=== PATIENT | female | born 1975 | race Caucasian/White ===

== ENCOUNTER 2017-03-07 19:46 | Emergency (ER) | payer BC, SELFPAY ==
[~2017-03-07 19:46] MED LIST: ACET500CAP PO; BALACET 325 PO; BIRTHCONTROL PILL PO; EFFEXOR XR150 MG PO; EFFEXXR75 PO; ENDOCET1 TA3; FERRETTS325 MG PO; FLEX PO; MULTIPLE VIT PO; NEUR400 PO; SEASONIQUE OR; THERAPEUTIC PO; [UNRECOGNIZED DRUG - REMARK]
[2017-03-30] MEDS ORDERED: NEUR800 PO (13:14)
[2017-03-30] MEDS ORDERED: PAX20 PO (13:15)
[2017-03-30] MEDS ORDERED: LIPITOR20 PO (13:15)
[2017-03-30] MEDS ORDERED: IBU600 PO (13:18)
[2017-03-30] MEDS ORDERED: PROBIOTIC PO (13:18)
[2017-03-30] MEDS ORDERED: FISH-EPA1000 MG PO (13:19)
[2017-03-30] MEDS ORDERED: [UNRECOGNIZED DRUG - OTHER] PO (13:21)
== END 2017-03-07 20:04 | disposition home or self-care (01) ==
LOC: ER 19:46
DX: M54.5 Low back pain (principal); F32.9 Major depressive disorder, single episode, unspecified; F41.9 Anxiety disorder, unspecified; Z88.0 Allergy status to penicillin; Z88.5 Allergy status to narcotic agent; Z88.2 Allergy status to sulfonamides; Z79.899 Other long term (current) drug therapy
CPT/HCPCS: 96372; 99283

== ENCOUNTER 2017-04-04 08:28 | Day surgery (SDC) | payer BC, SELFPAY ==
[2017-04-02 14:56] LABS: HEMATOCRIT 37.5 % (36.0-48.0); HEMOGLOBIN 12.3 g/dL (12.0-16.0)
[2017-04-02 15:11] LABS: ALBUMIN 3.6 G/DL (3.5-5.0); BUN (BLOOD UREA NITROGEN) 10 MG/DL (6-23); CALCIUM, SERUM 9.1 MG/DL (8.5-10.4); CHLORIDE, SERUM 103 MMOL/L (96-112); CREATININE 0.64 MG/DL (0.55-1.02); GFR AFRICAN AMERICAN 127 ML/MIN (>=60); GFR NON AFRICAN AMERICAN 109 ML/MIN (>=60); GLOBULIN 3.5 G/DL (2.5-4.1); GLUCOSE, SERUM 99 MG/DL (60-99); POTASSIUM, SERUM 3.9 MMOL/L (3.5-5.3); SGOT(AST) 20 U/L (5-40); SGPT(ALT) 36 U/L (5-65); SODIUM, SERUM 141 MMOL/L (135-148); TOTAL BILIRUBIN 0.5 MG/DL (0-1.2); TOTAL PROTEIN 7.1 G/DL (6.0-8.5)
[2017-04-02 15:12] LABS: ALKALINE PHOSPHATASE 126 U/L (45-117); CO2 (CARBON DIOXIDE) 34 MMOL/L (24-34)
--- NOTE | ~2017-04-04 | OP ---
Record Of Operation [facility] [address] [place]. [address] NAME: ETIENNE NATION : 73 STATUS : [facility]#: [id number] AGE: 42 ADM/REG DATE : 04/04/17 MR#: [id number] REPORT SERV DATE: 04/05/17 DICTATED BY: MICAELA CAMARA JR. DATE: 04/04/17 REPORT STATUS : Draft TRANSCRIBED BY: TAMERA DATE: 04/04/17 DATE OF PROCEDURE: REASON FOR SURGERY: This 42-year-old patient presents with a biopsy-proven malignancy of the left breast. She has been counseled concerning options of management. She does have a borderline family history and was found to be negative for inherited genetic pattern. She is to undergo breast preservation surgery and this will certainly necessitate postoperative radiation therapy at her age. Whether she will need any adjuvant therapy, be on hormone blocking therapy will depend on final pathology, and input from the medical oncologist. PREOPERATIVE DIAGNOSIS: Carcinoma of left breast. POSTOPERATIVE DIAGNOSIS: Carcinoma of left breast. SURGEON: Micaela Camara M.D. SURGERY PERFORMED: [place] node localization followed by left breast segmentectomy and sentinel node resection. DESCRIPTION OF PROCEDURE: The patient was initially injected in the nuclear medicine facility. She was taken to the operating room and under general anesthesia, she was prepped and draped in supine position in the usual sterile fashion. A curvilinear incision was made over the previously biopsied lesion in the upper outer quadrant on the left. Vertical dissection was carried down through the fatty tissue and then a 3-dimensional excision was performed measuring 4 cm across keeping the palpable mass centermost within the specimen. It was removed and oriented for pathology. Initial sectioning shows full centimeter margin in each direction. The wound was irrigated. Hemostasis was obtained. The wound was closed with two layers of Monocryl. Attention was then turned to the left axilla. With usage of the Gamma probe, a small curvilinear incision was made and vertical dissection was carried down to singly active lymph node. It was removed and taken with counts of over 6000 and background count under 30, indicating appropriate resection of the sentinel node. An adjacent non-active node was also taken as specimen. The wound was irrigated. Hemostasis was obtained. The wound was closed with two layers of Monocryl. The patient tolerated the procedure well without complications. ESTIMATED BLOOD LOSS: 10 mL. SPONGE COUNT: Correct. Record Of Operation [facility] [address] [place]. [address] NAME: ETIENNE NATION : 73 STATUS : [facility]#: [id number] AGE: 42 ADM/REG DATE : 04/04/17 MR#: [id number] REPORT SERV DATE: 04/05/17 DICTATED BY: MICAELA CAMARA JR. DATE: 04/04/17 REPORT STATUS : Draft TRANSCRIBED BY: TAMERA DATE: 04/04/17 /TAMERA Micaela Camara Jr., M.D. / [id number] CC: Juliano Beach Jr., M.D.
[~2017-04-04 08:28] MED LIST changes: +FISH-EPA1000 MG PO; +IBU600 PO; +LIPITOR20 PO; +NEUR800 PO; +PAX20 PO; +PROBIOTIC PO; +[UNRECOGNIZED DRUG - OTHER] PO
== END 2017-04-04 17:00 | disposition home or self-care (01) ==
LOC: SDC 08:28
PROVIDERS: Surgery Surgical Oncology
PROC: 07B60ZX Excision of Left Axillary Lymphatic, Open Approach, Diagnostic (ICD-10-PCS; 2017-04-04)
PROC: 0HBU0ZX Excision of Left Breast, Open Approach, Diagnostic (ICD-10-PCS; principal; 2017-04-04 12:00)
DX: C50.412 Malignant neoplasm of upper-outer quadrant of left female breast (principal); E66.9 Obesity, unspecified; E78.5 Hyperlipidemia, unspecified; Z90.89 Acquired absence of other organs; Z98.890 Other specified postprocedural states; Z88.0 Allergy status to penicillin; Z88.5 Allergy status to narcotic agent; Z88.2 Allergy status to sulfonamides; Z68.41 Body mass index [BMI] 40.0-44.9, adult; Z79.1 Long term (current) use of non-steroidal anti-inflammatories (NSAID); Z79.891 Long term (current) use of opiate analgesic; Z79.899 Other long term (current) drug therapy; Z98.1 Arthrodesis status
CPT/HCPCS: 71020; 78195; 80053; 84703; 85014; 85018; 88305; 88307; 88342; A9541; J0690; J1885; J2250; J2405; J2550; J3010